=== PATIENT | female | born 1940 | race Caucasian/White ===

== ENCOUNTER 2025-06-23 08:55 | Day surgery (SDC) | payer MEDICARE, SELFPAY ==
[2025-06-13 12:42] VITALS: BMI 28.8
[2025-06-23] VITALS (9 sets, daily range): BP systolic 105–158; BP diastolic 60–84; PULSE 84–109; RESP 16–20; TEMP 36.2–37; O2SAT 92–97; BMI 30.9
--- NOTE | 2025-06-23 07:47 | DI.RAD.S_ITS ---
PROCEDURE: XR KNEE RT 1TO2V
--- NOTE | 2025-06-23 09:32 | P.OP.PRE_ITS ---
Pre-operative Note
--- NOTE | 2025-06-23 09:32 | PM.PREOP ---
Pre-operative Note Interval Note History & Physical reviewed/Exam performed by Physician: Yes Changes to H&P: No
[2025-06-23] MEDS: MELOXICAM 7.5 MG TABLET PO (09:37)
[2025-06-23] MEDS: ACETAMINOPHEN 325 MG TABLET 975 MG PO (09:37)
[2025-06-23] MEDS: LACTATED RINGERS 1,000 ML 42 ML IV ×2 (10:13→11:29)
[2025-06-23] MEDS: TRANEXAMIC ACID 1,000 MG VIAL 1000 MG INJ ×2 (11:05→13:05)
[2025-06-23] MEDS: KETOROLAC 30 MG/ML VIAL 15 MG IV (11:18)
--- NOTE | 2025-06-23 11:24 | SUR.OPER ---
Supine on padded OR bed. Pillow under head, arms secured on padded armboards <90 degree abduction. Safety belt across torso. Non-operative left leg secured with tape over blanket over lower leg. Operative right leg secured in DeMayo/Obdulio/Nathe positioner. Foam padded brace at thigh of operative leg.
--- NOTE | 2025-06-23 13:15 | P.OP_ITS ---
Operative Date/Time/Diagnoses
--- NOTE | 2025-06-23 13:15 | PM.OP.1 ---
Operative Date/Time/Diagnoses Date of procedure: 06/23/25 Time of procedure: 11:45 Pre-op diagnosis: Right knee arthritis Post-op diagnosis: same Procedure & Clinicians Procedure: Right total knee arthroplasty Same procedure(s) as scheduled: Yes Surgeon: Tony Su Assisted?: Yes Punch Out Crew Member: Radha Aguilar Anesthesia Type: Spinal, Sedation, Peripheral nerve block and Local Operative Notes Findings: Severe arthritis with medial laxity Closure Type: primary Applied: implant(s) Estimated Blood Loss (mL): 100 Tourniquet time (min): 90 Procedure in detail: Right total knee arthroplasty using a Idalia CCK implant for severe valgus arthritis with medial sided laxity Implants: Size 9 Femoral Component with 14 x 75 stem Size E Tibial Component with 14 x 75 stem Size 10 CCK Polyethylene Insert Unresurfaced Patella Procedure Summary: This 85-year-old female patient has a family history of Evangelina-Danlos syndrome although she has not personally been diagnosed with it. She also has severe bilateral valgus knee arthritis. Given these factors I recommended a constrained insert for her knee replacement today. As anticipated even after a lateral release she still had significant medial-sided laxity relative to the lateral side. This persisted even when trialing with a CPS insert. A CCK insert was used for the final components in order to restore her medial-sided restraint against valgus stress and after final implants were inserted this was appropriate. Procedure in Detail: This patient was seen preoperatively and evaluated for knee pain which was refractory to numerous nonoperative treatment modalities. Their pain correlated with radiographic changes demonstrating significant degeneration in the knee joint. The risks and benefits of continued nonoperative management versus operative management were discussed at length and all of the patient?s questions were answered. Additional educational materials providing further details beyond our discussion in clinic were provided via a publicly available patient education video which included the incidence of medical complications associated with total knee arthroplasty, reasons for revision following total knee arthroplasty, and patient satisfaction rates following total knee arthroplasty. With this understanding of the risks inherent to the procedure, the patient elected to move forward with operative management. Following preoperative optimization, the patient was scheduled for surgery. The patient was met in the preoperative holding area the day of the procedure and all questions were answered. The patient?s nares were swabbed in order to decolonize them from MRSA. Informed consent was signed and the right limb was marked with indelible ink.? The patient was brought back to the operating room where anesthesia was induced. The patient was transferred to the operating table and all bony prominences were padded. The operative site was prepped and draped in the usual sterile fashion. A second prep stick was utilized following drape placement. The incision was marked corresponding to the medial aspect of the tibial tubercle and the patella. Ioban was wrapped circumferentially around the knee. Prior to incision, tranexamic acid and cefazolin were administered. Templating images were displayed. A timeout procedure was performed verifying the patient?s identity, medical comorbidities, allergies, relevant medications, anesthesia type and the surgical plan. All present were in agreement. The assistance of a physician phlebotomist lab assistant was required for positioning, room setup, soft tissue retraction and wound closure. Without this assistance, the procedure would have been significantly more challenging and time consuming.?? The tourniquet was inflated prior to incision. I made an anterior incision over the knee, dissected through the subcutaneous tissues and identified the lateral border of the VMO. Medial and lateral soft tissue flaps were developed. A mid-vastus arthrotomy was performed ensuring that adequate capsular tissue would remain for closure at the conclusion of the procedure. The knee was brought into extension and the medial soft tissues were released off the joint line of the tibia. Tissue overlying the distal anterior femur was released to allow for later assessment for anterior notching but left in place. A portion of the retropatellar fat pad was excised while protecting the patellar tendon. The patella was everted. The patella was not resurfaced. Osteophytes were excised and a lateral facetectomy was performed. The patella was released from its everted position.?? I flexed the knee to 90 degrees and placed retractors to allow access to the notch. An opening reamer was used to gain access to the femoral canal and an intramedullary lala was introduced into the canal. Diaphyseal fit was obtained in order to plan a distal femoral resection at 5 degrees relative to the anatomic axis. A +0 resection was planned and assessed using an meena wing. I then made the cut using a sagittal saw. This provided additional access to the femoral notch. The ACL and PCL were excised. Retractors were placed on the lateral and medial tibia. I hyperflexed the knee while externally rotating it to sublux the tibia anteriorly. I placed a Linda retractor posteriorly and used this to provide additional anterior subluxation. The remainder of the PCL root was released. An extramedullary guide was positioned for a resection perpendicular to the anatomic and mechanical axes of the tibia, thereby aiming to achieve mechanical alignment of the eventual implant. A +2 resection off the medial tibia after I had removed all of the cartilage which was left in that compartment was planned and the tibial cutting jig was pinned in place. I evaluated the depth, varus-valgus alignment and slope of the planned tibial resection prior to making the cut. I cut the tibia with a sagittal saw while using retractors to protect the MCL, patellar tendon, and posterolateral structures.? The knee was repositioned in extension and the Fuzion soft tissue balancing gauge was introduced. This demonstrated that the medial side was significantly loose relative to the lateral side. As anticipated I therefore move forward with a CCK. I performed a measured resection 3 degree cut of the femur. An meena wing was used to ensure there would be no anterior notching. Retractors were placed to protect the soft tissues during resection. Captured cuts were performed with a sagittal saw for the anterior and posterior femur as well as the corresponding chamfers.?A laminar personal lines insurance advisor and retractors were used to expose the posterior knee and the menisci and posterior osteophytes were removed. The box and stem were prepped. Trial components were placed and the construct was assessed. Range of motion was assessed by ensuring the knee could achieve full extension and assessing maximum passive knee flexion by elevating the femur and allowing the heel to passively fall towards the buttock. Gap symmetry was assessed by stressing the medial and lateral compartments in both extension and flexion. Laxity was assessed in both extension and flexion and the polyethylene trial was adjusted with shims as necessary. Patellar tracking was assessed with knee flexion. Once satisfied with the construct, I moved forward with implant insertion. Lug holes were drilled in the femur and the tibia was prepped ensuring appropriate sizing and rotation relative to the tibial tubercle.?? The bony ends were irrigated and cement was prepared. Portions of the anterior chamfer cut were utilized as a cement restrictor in the femur. Cement was placed on the entirety of the undersurface of both the tibial and femoral components. Cement was placed onto the dry tibia and pressurized into the cancellous bone. I impacted the tibial component into place. Cement was removed. The tibia was reduced underneath the femur and placed cement onto the dry surface of the resected femur. I placed the femoral component as well as the intended polyethylene trial. Cement was removed from around the femur. I brought the knee into extension and manually pressurized the construct by pushing on the heel while the cement dried. The knee was bathed in a dilute mixture of betadine and peroxide. A mixture of Ropivacaine, Epinephrine and Toradol was infiltrated throughout the soft tissues into structures including the VMO, patellar tendon, quadriceps tendon, MCL and femoral periosteum. The knee was copiously irrigated with pulse lavage. Once cement had been allowed to dry the knee was again trialed. Range of motion was assessed by ensuring the knee could achieve full extension and assessing maximum passive knee flexion by elevating the femur and allowing the heel to passively fall towards the buttock. Gap symmetry was assessed by stressing the medial and lateral compartments in both extension and flexion. Laxity was assessed in both extension and flexion and the polyethylene trial was adjusted with shims as necessary. Patellar tracking was assessed with knee flexion. The tourniquet was let down and the polyethylene trial was removed. I inspected the knee inspected for excess cement and any residual bleeding. Once hemostasis was achieved I inserted the final polyethylene and ensured appropriate engagement of the dovetail locking mechanism.?? The arthrotomy was closed with non-absorbable interrupted suture ensuring that this extended to the top of the arthrotomy. This was backed up with running barbed suture throughout the arthrotomy. The skin was closed with 2-0 and 3-0 sutures. Surgical glue was applied and a soft dressing was placed.?The sponge, instrument and needle counts were reported as being correct at the end of the case. The patient was transferred from the operating table back to a stretcher. The patient emerged from anesthesia without difficulty and was taken to the PACU in a stable condition.? Plan for aftercare: Weightbearing as tolerated Aspirin 81 twice per day for DVT prophylaxis Multimodal pain regimen with no IV opioids ordered Anticipate [place] via [place]. She also will need inpatient physical therapy prior to departing.) Follow up at [facility] in 2 weeks for wound check Complications: none Post-operative Condition: stable Disposition: Acute Care
--- NOTE | 2025-06-23 18:32 | PM.PN.IH.1 ---
Subjective Subjective Interval history: I came by to check on Fernandez postoperatively. She is resting comfortably in bed. She is in no acute distress. She has no significant pain currently. We discussed her recovery in detail with her as well as her . She has intact plantar flexion and dorsiflexion of her hallux and ankle and her Owen wrap is in place and is clean dry and intact. We will plan for her to discharge home tomorrow morning via [facility] Exam Vital Signs (past 8 hours): - 06/23/25 13:55 06/23/25 14:02 06/23/25 14:15 Temperature 97.1 F L 97.3 F L 97.4 F L Pulse Rate 89 86 85 Respiratory Rate 20 20 18 Blood Pressure 117/74 119/60 116/77 Pulse Oximetry 93 93 97 Oxygen Delivery Method Room Air Room Air 06/23/25 14:45 06/23/25 17:16 Temperature 97.4 F L 98.5 F Pulse Rate 94 H 109 H Respiratory Rate 16 18 Blood Pressure 105/65 129/71 Pulse Oximetry 94 92 Oxygen Delivery Method Oxygen Delivery Method Room Air Objective Labs Labs: Laboratory Results - last 24 hr 06/23/25 10:07 POC Whole Bld Glucose 101 H PFSH Medical History (Updated 06/13/25 @ 14:42 by Skylar Patterson RN) Primary osteoarthritis of both knees Osteoarthritis Depression Osteoporosis Rubella Measles Herpes Chicken pox AMD (age related macular degeneration) (~2016) Hearing loss Cataracts, bilateral Uterine cancer (~2022) Osteopenia of spine (02/24/17) Osteopenia of other site (02/20/17) Polymyalgia rheumatica (06/17/16) Other polyneuropathy (02/10/16) 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) Obstructive sleep apnea syndrome (12/04/15) Restless legs syndrome (10/12/15) Essential hypertension (10/12/15) Surgical History (Updated 06/13/25 @ 14:42 by Skylar Patterson RN) History of surgery on arm History of nasal surgery Hx of knee surgery Hx of bilateral cataract extraction Anesthesia History of hysterectomy (~2022) Family History (Updated 11/23/24 @ 18:38 by Kristan Delarosa) Brother Stroke MS (multiple sclerosis) Father Hypertension History of heart disease Mother Cancer Social History household members: significant other Smoking Status: Former smoker alcohol intake: current Assessment & Plan Time-Based Coding :: [TOTAL MINUTES] spent with patient and on the chart (including review of chart, obtaining history, exam, reviewing outside data, placing orders, documenting exam and treatment plan, and counseling patient) on [DATE]. Quality VTE Deep Vein Thrombosis/Pulmonary Embolism Present on Admission: No IH PROFEE Manager Personal Document charge(s): No
[2025-06-23] MEDS: LACTATED RINGERS 1,000 ML 100 ML IV (18:47)
[2025-06-23] MEDS: ACETAMINOPHEN 325 MG TABLET 650 MG PO ×2 (18:47→23:55)
[2025-06-23] MEDS: DOCUSATE 100 MG CAPSULE PO (20:22)
[2025-06-23] MEDS: ASPIRIN EC 81 MG TABLET PO (20:22)
[2025-06-24] MEDS: TRANEXAMIC ACID 2,000 MG in SODIUM CHLORIDE 0.9% 100 ML 200 MG IV (05:06)
[2025-06-24] MEDS: ACETAMINOPHEN 325 MG TABLET 650 MG PO (05:13)
--- NOTE | 2025-06-24 05:47 | P.DS_ITS ---
History of Present Illness
--- NOTE | 2025-06-24 05:47 | PM.DS.IH.1 ---
History of Present Illness History of Present Illness Chief complaint: R total knee replacement *OPB* Narrative: 85 year old female with a past medical history of storm danlos syndrome, hypertension and polymyalgia rheumatica presented to [facility] on 06/23/25 for planned right total knee arthroplasty by Dr. Su. ?This elective procedure was indicated by chronic right knee arthritis causing night time pain and difficulty maintain her normal activities. ?On the date of surgery there were no changes of the medical history, medications or allergies. ?Consent had been obtained and the patient was in agreement to proceed with planned surgery. This morning the patient reports she is doing very well with mild pain after surgery. Pain has been controlled with oral medications including tylenol and oxycodone on one occasion last night. The patient has not worked with physical therapy yet but has been up and walking with the assist of her walker. She noticed difficulty with ankle dorsiflexion and has been dragging the right foot when ambulating. The patient denies chest pain, dyspnea, nausea, emesis, fever and chills. Patient she has some numbness in the right lower extremity. She is making urine spontaneously. The patient has all of their post operative medications at home and feels ready to discharge home today with care of her . Discharge Providers Provider Discharge Date: 06/24/25 Primary care physician: Nixon Laurent PA-C Consults: 06/23/25 07:46 Consult to Anesthesiology Routine Comment: Consulting Provider: Anesthesiologist Reason for consultation: Regional block for post-operative pain control 06/23/25 17:16 Consult to Discharge Planning Routine Comment: Consult to Occupational Therapy Evaluate & Treat Comment: Physician Instructions: Evaluate and treat Consult to Physical Therapy Evaluate & Treat Comment: Physician Instructions: Evaluate and Treat Discharge provider: LEA Iqbal Dr Summary Hospital Course Hospital Course: On 06/23/25 the patient was brought to the operating room for planned right total knee arthroplasty by Dr Su.? There were no known intraoperative complications.? The patient was transferred to the postoperative recovery area and monitored appropriately.? Later the patient was transferred to the acute care unit [facility] for monitoring overnight and physical therapy.? There were no acute events overnight.?On post operative day 0 she was noted to have difficulty with ankle dorsiflexion. On postoperative day 1, the patient's vital signs were stable and she was making urine spontaneously.? The patient denied chest pain, dyspnea, nausea and emesis on postoperative day 1.? The patient was awaiting physical therapy evaluation during orthopedic rounds.? Pain was well-controlled on oral analgesics and the patient was in agreement with preoperative plan to [place] on postoperative day 1. Given difficulty with ankle dorsiflexion the patient was seen by Dr Su on post operative day 1 as well as myself. Dr Su provided a written prescription for an AFO given to be obtained locally. Exam Vital Signs (past 8 hours): - 06/23/25 23:56 Pulse Rate 84 Respiratory Rate 16 Blood Pressure 134/84 Pulse Oximetry 95 Oxygen Delivery Method Room Air Narrative Exam Narrative: well developed, well nourished, 85 year old female, no acute distress Active dorsiflexion of right ankle is not intact. Passive dorsiflexion is appropriate however she cannot initiate any active dorsiflexion. Plantar flexion and EHL function intact. Ankle eversion is weak with 3/5 strength. Ankle inversion 4/5. Gross sensation to right foot intact, palpable dorsalis pedis pulse calves are soft and non tender dressing dry and intact to right knee without hematoma. 0.25 cm spot of sanguinous drainage on dressing Objective Labs 06/24/25 04:50 06/24/25 04:50 Labs: Laboratory Results - last 24 hr 06/23/25 10:07 POC Whole Bld Glucose 101 H PFS Medical History (Updated 06/13/25 @ 14:42 by Skylar Patterson RN) Primary osteoarthritis of both knees Osteoarthritis Depression Osteoporosis Rubella Measles Herpes Chicken pox AMD (age related macular degeneration) (~2016) Hearing loss Cataracts, bilateral Uterine cancer (~2022) Osteopenia of spine (02/24/17) Osteopenia of other site (02/20/17) Polymyalgia rheumatica (06/17/16) Other polyneuropathy (02/10/16) 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) Obstructive sleep apnea syndrome (12/04/15) Restless legs syndrome (10/12/15) Essential hypertension (10/12/15) Surgical History (Updated 06/13/25 @ 14:42 by Skylar Patterson RN) History of surgery on arm History of nasal surgery Hx of knee surgery Hx of bilateral cataract extraction Anesthesia History of hysterectomy (~2022) Family History (Updated 11/23/24 @ 18:38 by Kristan Delarosa) Brother Stroke MS (multiple sclerosis) Father Hypertension History of heart disease Mother Cancer Social History household members: significant other Smoking Status: Former smoker alcohol intake: current Discharge Assessment & Plan Assessment and Plan Plan of Treatment: 85 year old female with a past medical history of storm danlos syndrome, hypertension and polymyalgia rheumatica presented to [facility] on 06/23/25 for planned right total knee arthroplasty by Dr. Su. The patient is recovering well with appropriate pain control on oral analgesics and stable vital signs. The patient is comfortable with planned discharge home today on post operative day one after physical therapy. Dr Su was contacted about the foot drop. He has prescribed an AFO to be obtained at a local prosthetics office. [facility]. Plan:? Weightbearing as tolerated to right lower extremity with front wheeled walker? ? DVT prophylaxis with 81 mg of aspirin twice daily for 6 weeks Continue multimodal analgesia with Tylenol, meloxicam and oxycodone? Bowel regimen as needed? Physical therapy evaluation and treatment today? Follow up with orthopedics 2 weeks post operatively? All post operative medications ordered at pre operative visit? Ice to surgical site as needed? All patient questions were answered and they verbalized agreement with the above plan. Call [facility] with any questions or concerns. Discharge Plan Discharge Plan Patient Disposition: Home Provider Discharge Comment: SURGICAL PROCEDURE: Right Total Knee Arthroplasty SURGEON: Dr. Su at [facility] DATE: 06/23/25 ACTIVITY INSTRUCTIONS o You are weight bearing as tolerated to the right lower extremity with a front wheeled walker at all times. We encourage active movement of the toes and ankle every hour while awake to prevent stiffness. o Limit your steps to no more than 1000 steps per day for the first week after surgery to limit swelling. o Do not drive while taking narcotic medications and recovering from your surgery. o If you had a knee replacement, we want you to follow a quiet knee protocol for the first two weeks after surgery. This means: Do not stand for more than 20 minutes at a time Ambulate less than 1,000 steps per day Bend the knee as far as you can with your own muscles and straighten it all the way out by resting your heel on a flat surface and letting your knee hang down Avoid anyone pushing your knee to bend it or straighten it After two weeks we will want you to get more aggressive in your work with physical therapy, but we need to let your body heal first DRESSING CARE o You have an aquacell dressing on top of your incision. This is a waterproof dressing and so you may shower with the dressing so long as the dressing remains clean and dry to the surgical site. Leave the dressing in place until your follow up in the orthopedic clinic. If the dressing becomes saturated or is disrupted call our office for further guidance. o Your dressing is covered with a soft cotton dressing and hope wrap for compression. You may remove these dressings when you return home but should leave the waterproof dressing in place. POST-OPERATIVE INSTRUCTIONS o If you notice fever, chills, night sweats, redness, excessive drainage or bleeding, a sharp increase in pain that persists after taking pain medication, pain in your calf muscles, chest pain or trouble breathing please unwrap the dressing and investigate. Then call the office with findings for further guidance. If it is after regular clinic hours, please seek care in the emergency department. o In the rare case of any severe chest pain and trouble breathing, seek immediate care, do not delay for a call to the clinic. o Use ice to the affected extremity for 15-30 minutes increments as much as possible. Use your ice machine as discussed in your pre-operative visit. o Keep extremity elevated to the level of the heart to reduce swelling. You can use ice on top of the dressing to reduce pain and swelling of the extremity. o You should consume a low sodium diet after surgery to limit swelling. You can gradually resume your normal diet if you have no nausea or vomiting o Physical therapy should begin about 7-10 days after surgery. Your first evaluation should already be scheduled. Call our office if you cannot schedule your therapy in the expected time frame. o Your follow up is already scheduled for 2 weeks after your surgery at the Orthopedic clinic. o You should have no dental procedures for 6 months following your total joint replacement. If there is a dental emergency call our office for guidance. o Please refer to Dr. Su?s educational videos on YouTube for a reference on your post operative care. o Call [facility] at [phone] with any questions or concerns. MEDICATIONS o Please refer to the ?Orthopedic Medication Instructions? sheet provided at your pre-operative visit. Written instructions are provided below as a reminder. ? Take two pills of 500 mg Tylenol (acetaminophen) every 8 hours regardless of pain in a scheduled manner. Do not exceed 3000 mg of Tylenol (from ALL sources, including over the counter combination products) in a 24-hour period due to risk of liver injury. ? Take one pill of oral meloxicam daily. This is NSAID (anti-inflammatory) medication to reduce swelling and pain. ? Take one pill of 5 mg oxycodone by mouth every 4-6 hours as needed for break through pain after taking your regular Tylenol and anti-inflammatory. ? Oxycodone and Tramadol are opioids, which means they are similar to morphine, heroin or fentanyl. Our goal is for you to take as little of this as possible because the side effects from it can be very severe. If you are able to get through your recovery process taking 10 pills or less please share your story with other patients by logging onto [email or web address] and sharing what strategies you used to avoid these dangerous medications. You can also read other patients? stories on that website to get strategies that go above and beyond what we have discussed to help you manage this pain while avoiding opioids. ? Take 200 mg of Colace by mouth every 12 hours for constipation. Narcotic medications such as oxycodone and tramadol as well as anesthesia may increase your risk of constipation after surgery. ? Take 4 mg of Zofran by mouth every 6 hours as needed for uncontrolled nausea or vomiting. If you have persistent nausea and vomiting call our office or seek care in the emergency department. ? Take one pill of 81 mg of aspirin two times daily 12 hours apart for 6 weeks for blood clot prevention. Take this medication regardless of pain. ? Take three pills of 650 mg tranexamic acid once daily for 3 days following surgery. This is to reduce bleeding and swelling in your knee. ? Take a proton pump inhibitor such as Pantoprazole or Omeprazole if you have a history of acid reflux or are noticing stomach irritation. NSAIDs and aspirin can both cause stomach irritation and that medication can help avoid stomach issues. o If you stopped taking a ?biologic? medication that you normally take for an issue such as rheumatoid arthritis or psoriasis prior to surgery, do not restart it until we have seen you back in clinic and confirmed that your wound is healed. o Resume all of your normal home medications tomorrow morning unless specified otherwise by your surgeon. Discharge orders & Medications Discharge Orders: Discharge (Order); Ordered 06/24/25 Ordered By: Tony Su Prescriptions: New acetaminophen 500 mg capsule 1,000 mg PO Q8HR Qty: 90 0RF tranexamic acid 650 mg tablet 1,950 mg PO .QD 3 Days Qty: 9 0RF aspirin 81 mg capsule 81 mg PO BID 45 Days Qty: 90 0RF Continued bupropion HCl [Wellbutrin XL] 300 MG tablet extended release 24 hr 300 mg PO Q DAY Qty: 90 1RF acyclovir 400 MG tablet 400 mg PO Q DAY Qty: 90 0RF PreserVision AREDS 2 Plus MV 200 mcg-15 mcg- 5 mg-1 mg capsule PO estradiol 0.01 % (0.1 mg/gram) cream 1 appful vaginal DAILY Qty: 42.5 6RF Rx Instructions: Place small amount in vagina using a finger for 2 wks and then 0.5gm twice a week vilazodone 40 mg tablet 40 mg PO DAILY ondansetron 4 mg tablet,disintegrating 4 mg PO Q8H PRN (Reason: nausea and vomiting) Qty: 7 0RF meloxicam 15 mg tablet 15 mg PO DAILY PRN (Reason: pain) Qty: 30 1RF docusate sodium [Colace] 100 mg capsule 100 mg PO BID PRN (Reason: constipation) Qty: 60 0RF pantoprazole 40 mg tablet,delayed release (DR/EC) 40 mg PO DAILY Qty: 30 0RF oxycodone 5 mg tablet 5 mg PO Q6H PRN (Reason: pain) Qty: 30 0RF Follow up/Referrals: Nixon Laurent PA-C [Primary Care Provider, Medical] Visit Report/Discharge Packet Stand Alone Forms: Patient Portal/API Print Language: Lao Discharge Data Primary Care Provider: Nixon Laurent Attending Provider: Tony Su VTE Deep Vein Thrombosis/Pulmonary Embolism Present on Admission: No IH PROFEE Charge Codes Discharge inpatient/observation: 26232
[2025-06-24 05:53] LABS: Add Manual Diff / Slide Review NO; Hematocrit 33.4 % (36-46); Hemoglobin 11.4 g/dL (12.0-16.0); Lymphocytes Absolute Auto 1000 /uL (1100-4500); Mean Corpuscular HGB Conc 34.2 % (30-36); Mean Corpuscular Hemoglobin 33.9 PG (26-34); Mean Corpuscular Volume 98.9 fL (80-100); Platelet Count 251 X10^3/uL (150-400)
[2025-06-24 06:01] LABS: Blood Urea Nitrogen 17 mg/dL (7-17); Calcium 9.1 mg/dL (8.4-10.2); Carbon Dioxide 26 mmol/L (22-32); Chloride 105 mmol/L (98-107); Estimated Glomerular Filt Rate > 60 mL/min (>60); Glucose 125 mg/dL (70-99); HEMOLYSIS < 15 (0-50); Potassium 3.8 mmol/L (3.4-5.1); Sodium 138 mmol/L (137-145)
[2025-06-24] MEDS: ASPIRIN EC 81 MG TABLET PO (08:10)
[2025-06-24] MEDS: IBUPROFEN 600 MG TABLET PO (08:12)
--- NOTE | 2025-06-24 08:38 | PM.PNPO.1 ---
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 She has no ankle dorsiflexion and limited eversion but intact hallux and lesser toe dorsiflexion and intact sensation on the dorsum of her foot. This is a known common complication of total knees in patients with severe valgus deformities like hers. Given the intact nerve function in her peroneal nerve with her toes and sensory function I anticipate that this is going to resolve over time but fall avoidance will be crucial. I provided a prescription for an AFO this morning for a local prosthetics shop. I would like her to discharge in time to go there and be fitted for the AFO prior to getting on [place] ferry and returning home. She will need to work with PT beforehand and reports that she has already walked around her hospital room yesterday evening although she did not get a formal PT session. Training on how to use ambulatory aids to avoid falls will be essential for her and will continue with outpatient PT. Exam Vital Signs (past 8 hours): Oxygen Delivery Method Room Air Objective Labs 06/24/25 04:50 06/24/25 04:50 Labs: Laboratory Results - last 24 hr 06/23/25 06/24/25 10:07 04:50 WBC 10.7 RBC 3.38 L Hgb 11.4 L Hct 33.4 L MCV 98.9 MCH 33.9 MCHC 34.2 RDW 14.2 Plt Count 251 Neut % (Auto) 80.4 H Lymph % (Auto) 8.9 L [place] % (Auto) 10.5 Eos % (Auto) 0.0 L Baso % (Auto) 0.2 Neut # (Auto) 8600 H Lymph # (Auto) 1000 L [place] # (Auto) 1100 H Eos # (Auto) 0 Baso # (Auto) 0 Sodium 138 Potassium 3.8 Chloride 105 Carbon Dioxide 26 BUN 17 Creatinine 0.64 Estimated GFR > 60 BUN/Creatinine Ratio 26.6 H Glucose 125 H POC Whole Bld Glucose 101 H Calcium 9.1 PFSH Medical History (Updated 06/13/25 @ 14:42 by Skylar Patterson RN) Primary osteoarthritis of both knees Osteoarthritis Depression Osteoporosis Rubella Measles Herpes Chicken pox AMD (age related macular degeneration) (~2016) Hearing loss Cataracts, bilateral Uterine cancer (~2022) Osteopenia of spine (02/24/17) Osteopenia of other site (02/20/17) Polymyalgia rheumatica (06/17/16) Other polyneuropathy (02/10/16) 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) Obstructive sleep apnea syndrome (12/04/15) Restless legs syndrome (10/12/15) Essential hypertension (10/12/15) Surgical History (Updated 06/13/25 @ 14:42 by Skylar Patterson RN) History of surgery on arm History of nasal surgery Hx of knee surgery Hx of bilateral cataract extraction Anesthesia History of hysterectomy (~2022) Family History (Updated 11/23/24 @ 18:38 by Kristan Delarosa) Brother Stroke MS (multiple sclerosis) Father Hypertension History of heart disease Mother Cancer Social History household members: significant other Smoking Status: Former smoker alcohol intake: current Assessment & Plan Post-op Postoperative Procedures: Procedures Operation Date: 06/23/25 11:15 Actual Procedure Side Surgeon p Total Knee Arthroplasty Right Tony Su MD Quality VTE Deep Vein Thrombosis/Pulmonary Embolism Present on Admission: No
--- NOTE | 2025-06-24 10:00 | PT.IIE ---
Current Diagnoses Unilateral primary osteoarthritis, right knee (06/23/25) Surgery Performed Operation Date: 06/23/25 11:15 Actual Procedures p Total Knee Arthroplasty(Right) - Tony Su MD Surgical History (Last Updated 06/13/25 @ 14:42 by Skylar Patterson, RN) Anesthesia History of hysterectomy (~2022) History of nasal surgery History of surgery on arm Hx of bilateral cataract extraction Hx of knee surgery Medical History (Last Updated 06/13/25 @ 14:42 by Skylar Patterson, RN) AMD (age related macular degeneration) (~2016) Cataracts, bilateral Chicken pox Depression Essential hypertension (10/12/15) Hearing loss Herpes Measles Obstructive sleep apnea syndrome (12/04/15) Osteoarthritis Osteopenia of other site (02/20/17) Osteopenia of spine (02/24/17) Osteoporosis Other polyneuropathy (02/10/16) Polymyalgia rheumatica (06/17/16) 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) Primary osteoarthritis of both knees Restless legs syndrome (10/12/15) Rubella Uterine cancer (~2022) Physical Therapy Inpatient Evaluation/Re-Eval M1 PT IP Prior Functional Status Start: 06/24/25 12:55 Freq: NEEDED Status: Discharge Protocol: Document 06/24/25 10:00 AB (Rec: 06/24/25 14:03 AB [id number]) Medical Review Prior Functional Status Medical History Yes Reviewed Communication able to make needs known; tends to refer to significant other for answers Mobility and Gait pt stated that she was modified independent with all mobilities and ambulation without AD but occasionally uses a walking stick or a SPC for outdoor long distance ambulation Social History Household Members significant other Living Arrangements House Number of Floors ( One Floor Floors) Number of Stairs To ramp to enter Enter/Railing? Home Environment Standard Height Toilet,Walk in Shower Home Equipment Front Wheel Walker,Straight Cane,Bedside Commode,Raised Toilet Seat w/Armrests,Shower Seat without Backrest, Hand Held Shower,Long Handled Shoe Horn,Utilization Management Manager,Sock Aid,Grab Bars In Shower Additional Social Pt has a very supportive partner to assist. History Comment M2 PT-IP Current Condition Start: 06/24/25 12:55 Freq: NEEDED Status: Discharge Protocol: Document 06/24/25 10:00 AB (Rec: 06/24/25 14:03 [id number]) Physical Therapy Current Condition Current Condition Evaluation Date 06/24/25 Treatment Diagnosis s/p R TKA; difficulty in walking Onset Date 06/23/25 M3 PT-IP Subjective Start: 06/24/25 12:55 Freq: NEEDED Status: Discharge Protocol: Document 06/24/25 10:00 AB (Rec: 06/24/25 14:03 [id number]) Subjective Physical Therapy Visit Type Type Initial Evaluation Visit Start Time 10:00 Visit Stop Time 10:50 Number of CARPENTRY INSTRUCTOR Visits 0 Physical Therapy Visit Comments Patient Comments agreeable to do PT Therapy Pain Assessment Pain When Pain Assessed At Rest Pain Present Pain Present Pain Reported Location Right Knee Intensity 2 Scale Used Numeric (0 - 10) Pain Management Distraction,Modification of Treatment,Re-positioning, Techniques Timing of Activity with Medications M4 PT-IP Mobility and Gait Start: 06/24/25 12:55 Freq: NEEDED Status: Discharge Protocol: Document 06/24/25 10:00 AB (Rec: 06/24/25 14:03 [id number]) PT-Bed Mobility Assessment Supine to Sit Supine to Sit Standby Assistance PT-Transfer Assessment Sit to and From Stand Sit to and from Minimal Assistance,1 Person Assistance,Use of Upper Stand Extremities Equipment Transfer Assistive Gait Belt,Front Wheeled Walker Device Orthotic/Prosthetic No Devices or Brace: Transfers Transfer Destination Chair Transfer Technique ambulated Transfer Ability Level of Assist Contact Guard Assistance,Minimal Assistance,1 Person Assistance,Use of Upper Extremities Comments Mobility Comments pt in bed and pt's significant other in room with pt. obtained PLOF and home set up. post-op folder provided and reviewed contents. reviewed HEP. pt completed heel slides prior to getting up. BP: 125/78. completed supine to sit SBA. pt can be impulsive. cued for safety. able to sit on EOB SBA. sit to stand min A and cues. pt ambulated in room using FWW ~ 20 ft initial min A and able to complete with CGA after a few feet of walking and cues for R quads activation. pt sat on the chair. caregiver training conducted. educated caregiver on how to use safety. caregiver was able to put safety belt on pt and assisted pt with sit to stand and ambulation in room using FWW ~ 30 ft CGA. pt sat back on chair and positioned. call light and table placed within reach. pt and significant other without further concerns. Gait Assessment Gait Gait Assistance Contact Guard Assist,Minimum Assistance Required: Distance (Feet) 30 Able to Maintain Yes Weight Bearing Status During Gait Assistive Devices Assistive Device Gait Belt,Front Wheeled Walker Orthotic/Prosthetic No Devices or Brace: Gait Deviations General Gait Pattern Antalgic,Ataxic,Decreased Feet Clearance,Step-to Gait Factors Limiting Gait Function Factors Limiting Decreased Activity Tolerance,Decreased Strength, Gait Function Difficulty Following Directions,Limited Range of Motion ,Pain,Poor Balance,Poor Safety Awareness PT-Balance Assessment Sitting Balance and Reactions Static Sitting Normal Balance Ability Dynamic Sitting Good Balance Ability Standing Balance and Reactions Static Standing Good Balance Ability Dynamic Standing Fair Balance Ability Device Used FWW M5 PT-IP Objective Assessments Start: 06/24/25 12:55 Freq: NEEDED Status: Discharge Protocol: Document 06/24/25 10:00 AB (Rec: 06/24/25 14:03 [id number]) Orientation Orientation/Cognition Level of Alertness Alert Orientation Age,Place,Situation Language Function No Deficits Noted Ability Safety Awareness Decreased Safety Awareness Memory Description Short Term Impaired Gross Range of Motion Lower Extremity ROM Assessment Right Impaired Impairments R knee flexion: ~ 20-30 deg Strength Lower Extremity Strength Assessment Right Impaired Hip 4-/5 Knee 4-/5 Ankle 1/5: pt with R foot drop M6 PT-IP Treatment Start: 06/24/25 12:55 Freq: NEEDED Status: Discharge Protocol: Document 06/24/25 10:00 AB (Rec: 06/24/25 14:03 [id number]) Physical Therapy Treatment Education Education Provided Precautions,Weight Bearing Status,Post-Op Packet,Safety M7 PT-IP Assessment and Plan Start: 06/24/25 12:55 Freq: NEEDED Status: Discharge Protocol: Document 06/24/25 10:00 AB (Rec: 06/24/25 14:03 AB [id number]) PT Summary Assessment and Plan Potential Rehabilitation Fair Potential Status of Condition Evolving at Evaluation Summary Impairments Pain,ROM,Strength,Balance,Coordination,Sensation,Tone, Cognition,Bed Mobility,Transfers,Gait,Activity Tolerance Assessment Summary pt is an 85 y/o F s/p R TKA POD 1. pt is WBAT on RLE. pt requiring CGA to min A with mobilities using FWW and plans to go home with her significant other to assist her. Caregiver training conducted and significant other was able to assist pt with mobilities. pt may go home when medically stable. Goals Bed Mobility Goal Independent Transfer Goal Independent,Front Wheeled Walker Gait Goal Independent,Front Wheel Walker Gait Distance 150 Days to Meet Goals 5 Frequency of Treatment Frequency Of Twice a Day Treatment Treatment Plan Physical Therapy Bed Mobility Training,Transfer Training,Gait Training, Treatment Plan Therapeutic Exercise,Balance Retraining,Post Op Education,Discharge Planning,Hot or Cold Pack, Neuromuscular Re-ed,Coordination Retraining,Manual Therapy Weight Bearing Status Weight Bearing Weight Bear as Tolerated Status Allowed Weight RLE WBAT Bearing Amount ( enter % or #) (%) Recommendations To Nursing Amount of Assist 1 Person Assist Needed Discharge Recommendations PT Discharge Home with 13/03 Assist Available,Outpatient PT Recommendations Transportation Needs Private Vehicle at Discharge - PT assist 1
--- NOTE | 2025-06-24 11:28 | OT.IP.EVAL ---
Current Diagnoses Unilateral primary osteoarthritis, right knee (06/23/25) Surgery Performed Operation Date: 06/23/25 11:15 Actual Procedures p Total Knee Arthroplasty(Right) - Tony Su MD Past Medical History (Last Updated 06/13/25 @ 14:42 by Skylar Patterson, RN) AMD (age related macular degeneration) (~2016) Cataracts, bilateral Chicken pox Depression Essential hypertension (10/12/15) Hearing loss Herpes Measles Obstructive sleep apnea syndrome (12/04/15) Osteoarthritis Osteopenia of other site (02/20/17) Osteopenia of spine (02/24/17) Osteoporosis Other polyneuropathy (02/10/16) Polymyalgia rheumatica (06/17/16) 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) Primary osteoarthritis of both knees Restless legs syndrome (10/12/15) Rubella Uterine cancer (~2022) Surgical History (Last Updated 06/13/25 @ 14:42 by Skylar Patterson, RN) Anesthesia History of hysterectomy (~2022) History of nasal surgery History of surgery on arm Hx of bilateral cataract extraction Hx of knee surgery Occupational Therapy Inpatient Evaluation/Re-Eval M1 OT IP Prior Functional Status Start: 06/24/25 11:21 Freq: Status: Active Protocol: Document 06/24/25 11:21 [facility] (Rec: 06/24/25 11:39 [facility] Desktop) Medical Review Prior Functional Status Communication I Mobility and Gait Pt needing to use the cane or walking stick. Activities of Daily Able to do ADL needs. Living and IADL's Social History Household Members significant other Living Arrangements House Number of Floors ( One Floor Floors) Number of Stairs To Pt has a ramp. Enter/Railing? Home Environment Standard Height Toilet,Walk in Shower,Tub/Shower Home Equipment Front Wheel Walker,Straight Cane,Bedside Commode,Raised Toilet Seat w/Armrests,Hand Held Shower,Long Handled Shoe Horn,Semi Driver,Sock Aid Additional Social Pt has a very supportive partner to assist. History Comment M2 OT-IP Current Condition Start: 06/24/25 11:21 Freq: Status: Active Protocol: Document 06/24/25 11:21 [facility] (Rec: 06/24/25 11:39 [facility] Desktop) Occupational Therapy Current Condition Current Condition Evaluation Date 11/04/25 Treatment Diagnosis S/P R TKA Weight Bearing Status Weight Bearing Weight Bear as Tolerated Status M3 OT- IP Subjective and Pain Start: 06/24/25 11:21 Freq: Status: Active Protocol: Document 06/24/25 11:21 [facility] (Rec: 06/24/25 11:39 [facility] Desktop) OT- Subjective Occupational Therapy Visit Type Type Initial Evaluation Visit Start Time 10:50 Visit Stop Time 11:28 Occupational Therapy Visit Comments Patient Comments Pt agreed to get dressed and pt's partner present for OT eval. Patient/Caregiver TO go home. Goals OT Pain Assessment Pain When Pain Assessed At Rest Pain Present Pain Present Pain Reported Location Right Knee Intensity 3 Scale Used Numeric (0 - 10) M4 OT- IP ADL's Start: 06/24/25 11:21 Freq: Status: Active Protocol: Document 06/24/25 11:21 [facility] (Rec: 06/24/25 11:39 [facility] Desktop) OT [facility] General Evaluation Self-Feeding Ability Independent OT ADL-Grooming Comments OT Grooming Comments Pt to do later after doing discharge paper work with nursing. OT ADL-Dressing General Eval Upper Body Dressing Minimal Assistance Ability Lower Body Dressing Moderate Assistance,Maximum Assistance Ability Areas Needing Socks,Shoes Assistance Comments OT Dressing Comments Able to practice use of parts person and sock aid. Educated to dress the RLE first and take out past. OT ADL-Toileting Comments OT Toileting Pt wears incontinence brief and also has BSC. Comments OT ADL-Bathing Comments OT Bathing Comments Pt's partner aware best to cover the dressing for showering needs. M5 OT- IP IADL's Start: 06/24/25 11:21 Freq: Status: Active Protocol: Document 06/24/25 11:21 [facility] (Rec: 06/24/25 11:39 [facility] Desktop) OT-Instrumental Activities of Daily Living Home Safety Awareness Home Safety Comments Pt is a little distracted and confused. Medication Management Medication Pt's partner to assist. Management Comments Meal Preparation Meal Preparation Caregiver Provides Assist Case Managers Case Managers Caregiver Provides Assist M6 OT- IP Functional Cognition Start: 06/24/25 11:21 Freq: Status: Active Protocol: Document 06/24/25 11:21 [facility] (Rec: 06/24/25 11:39 [facility] Desktop) Cognitive Factors Limiting Selfcare Function Cognitive Ability Level of Alertness Alert,Confusional State Patient Orientation Name,Place,Situation Attention Span Capable of Focused Attention,Unable to Sustain Ability Attention Ability to Follow Able to Follow One Step Commands with Increased Time, Commands Able to Follow One Step Commands with Repetition Safety Awareness Underestimates Need for Assistance Cognitive Comments Cognitive Assessment Pt decreased STM, easily distracted, needing cues to Comments slow down, and vc to focus on one thing at a time. OT- Vision and Hearing OT- Vision Assessment Visual Acuity Glasses All The Time Visual Attentiveness WFL Occular Pursuits WFL M7 OT- IP Mobility and Balance Start: 06/24/25 11:21 Freq: Status: Active Protocol: Document 06/24/25 11:21 [facility] (Rec: 06/24/25 11:39 [facility] Desktop) OT-Transfer Assessment Sit to and From Stand Sit to and from Contact Guard Assistance Stand Comments Mobility Comments CGA to come to stand to the FWW. OT- Balance Assessment Sitting Balance and Reactions Static Sitting Normal Balance Ability Dynamic Sitting Good Balance Ability Standing Balance and Reactions Static Standing Fair Balance Ability M8 OT- IP Objective Assessments Start: 06/24/25 11:21 Freq: Status: Active Protocol: Document 06/24/25 11:21 [facility] (Rec: 06/24/25 11:39 [facility] Desktop) OT Gross Range of Motion Upper Extremity Range of Motion ROM Impairments WFL for needs OT Strength Comments Strength Comments WFK for needs. M9 OT- IP Assessment and Plan Start: 06/24/25 11:21 Freq: Status: Active Protocol: Document 06/24/25 11:21 [facility] (Rec: 06/24/25 11:39 [facility] Desktop) OT Summary Assessment and Plan Potential Rehabilitation Excellent Potential Analytic Complexity Low at Evaluation Summary OT Impairments Pain,Balance,Functional Cognition,Functional Mobility, Dressing,Toileting,Bathing,Toilet Transfers,Shower Transfers Progress Towards Progressing Toward Goals Goals Assessment Summary Pt low complexity and main barriers are pain, easily distracted and decreased safety awareness. Pt's has a very supportive partner that is capable of assist pt for ADL and mobility needs. Pt to go home with 24/7 assist and outpt PT. Goals Self-Feeding Goal Independent Grooming Goal Independent Dressing Goal Standby Assistance Toileting Goal Standby Assistance Bathing Goal Minimal Assistance Toilet Transfer Goal Standby Assistance Shower Transfer Goal Standby Assistance Days to Meet Goals 7 Frequency of Treatment Other frequency 5x/week Treatment Plan OT Treatment Plan ADL Training,Functional Cognition Training,Patient/ Family Education,Discharge Planning Discharge Recommendations OT Discharge Home with 13/03 Assist Available,Outpatient PT Recommendations Transportation Needs Private Vehicle at Discharge
--- NOTE | 2025-06-24 13:26 | PC.NURSE ---
Discharge Note Patient A&O, VSS, RA, no complaints of pain/discomfort. Discharge packet reviewed with patient all questions/concerns addressed. PIV discontinued. Patient able to dress self and pack all belongings with assistance from significant other. Patient taken down via wheelchair to POV accompanied by significant other.
--- NOTE | 2025-06-24 14:19 | CM.DANOTE ---
DCP Assessment note pt is a 85yo F POD1 right total knee. GARNISHER reviewed EMR. per chart, cleared to dc home today. Per PT/OT, cleared for home with assistance and OP f/u. Per RN, doing well, needs to get a brace from ortho fitted for drop foot? GARNISHER met with pt and Ekaterina in room. pt lives with spouse indep on [address]. has necessary DME for home. report plan for getting brace and then take ferry home to [place]. report understanding there may or may not be insurance issues with having INPT and OP care same day and will plan to follow up on backend once final bills are known. deny any DCP/CM needs from provider at this time. P: dc home today with spouse support and OP F/u. no identified barriers to safe dc home. will continue to follow as needed for DCP coordination GIRISH Huizar Discharge Planning/Care Management CM Discharge Assessment Start: 06/23/25 14:33 Freq: Status: Discharge Protocol: Document 06/24/25 14:14 SL (Rec: 06/24/25 14:18 SL [id number]) Discharge Planning Assessment Assigned Discharge GIRISH Horner Nurse Informaticist Provider Nixon Laurent Insurance [employer] Insurance Comment [employer] MCR Adv plan DPOA/Assigned Ekaterina, Designee Name Contact Information [phone] Advance Directives? Yes Advance Directives No on File History Provided By Patient,Medical Record Prior Living House Arrangements Household Members significant other Independent with ADL Yes 's Is patient alert and Yes oriented? Discharge Plan Home Referrals Initiated None needed Review Status In Process Please Provide Date 06/24/25 Initial DC Assessment Was Performed Next Review Type Continued Stay Review Pre-Anesthesia Assessment Start: 06/13/25 12:42 Freq: Status: Complete Protocol: Document 06/13/25 12:42 LB (Rec: 06/13/25 13:21 LB [id number]) Pre-Anesthesia Assessment Information obtained Phone via Preferred Name Jim Height 160.02 cm Weight 73.936 kg Body Mass Index (BMI 28.8 ) Has patient seen a Yes specialist in last 12 months? If yes, specialist ENT,Orthopedist seen Patient experienced Shortness of breath in the last year Patient experienced Yes syncope or dizziness in the last year? If yes, please Dizziness d/t being off balance. describe Does patient have None history of Has patient ever had No a blood clot? Is patient on No anticoagulant therapy? Does patient have a Yes chiropractic assistant? If yes, chiropractic assistant Dr Cardoza - [place]. name Was cardiac testing Yes performed? If yes, type 2024 - Echo, [place]. Does patient have No history of a pacermaker/ICD? Can patient climb a Yes: I go very slowly. flight of stairs without shortness of breath? Can patient walk Yes around the grocery store without shortness of breath? Does patient have None history of Does patient use No oxygen at home? Does patient have Yes history of Sleep Apnea? Patient uses CPAP/ No BiPAP? Cough or cold No symptoms in the past two weeks? Does patient have Yes any memory problems? If yes, please trouble remembering how to pronounce certain words describe Does patient have None history of Mobility device(s) Cane,Other used Comment Walking sticks. Will bring walker. Has patient fallen Yes within the past year ? Does patient have a No neurostimulator or pain stimulator? Does patient have No chronic pain? Does patient have Yes history of GERD? Special dietary Yes needs or difficulty swallowing? If yes, please I choke often when eating or drinking. describe Does patient have No history of kidney/ liver problems/ disease? Does patient have No Diabetes? HgbA1C 5.4 Date 04/15/25 GLP-1? No Does patient have No history of thyroid problems? Is patient ? No Is patient No ? Does patient have Yes history of cancer? If yes, what type? Endometrial - s/p hysterectomy. If yes, received Yes radiation? Alcohol intake holidays/special occasions only Smoking status Former smoker Marijuana product No use? Type +CBD. Comment Quit in her 30's. Other substance use None Does patient have No history of anesthesia reactions ? Family history of No anesthesia reactions ? Patient/family No member history of Malignant Hyperthermia? Does patient have I'm not sure. history of a blood transfusion reaction ? Anesthesia Review No Requested Spiritual beliefs No. that may affect healthcare choices? Cultural practices No. that may affect healthcare choices? Patient has Advanced Yes Directive and/or Power of Java J2Ee Architect? Does patient have Yes assistance after surgery? Comment Ekaterina Yostan - partner Who is driving Ekaterina Yostan - partner patient home after surgery? Relationship to Significant Other patient PAC Instructions Assistance for 24 hours post-op,Do not shave/clip surgical site,Medications to take/avoid,No ETOH/ petroleum product on skin DOS,NPO,Post-op transportation,Pre-surgical wash,Sensory aids,Sturdy shoes/comfortable clothes,Do not bring valuables and remove jewelry
== END 2025-06-24 12:45 | disposition home or self-care (01) ==
LOC: OR 14:19 → AC 14:20
PROVIDERS: Physician Assistant Surgical; PCP Physician Assistant; Referring Provider Orthopaedic Surgery Adult Reconstructive Orthopaedic Surgery; Visit Provider Orthopaedic Surgery Adult Reconstructive Orthopaedic Surgery
PROC: 0SRC0JZ Replacement of Right Knee Joint with Synthetic Substitute, Open Approach (ICD-10-PCS; CPT 27447; principal; 2025-06-23 11:15)
DX: M17.11 Unilateral primary osteoarthritis, right knee (principal); Z82.69 Family history of other diseases of the musculoskeletal system and connective tissue; M21.061 Valgus deformity, not elsewhere classified, right knee; M25.761 Osteophyte, right knee
CPT/HCPCS: 27447; 36415; 73560; 80048; 82962; 85025; 97161; 97165; 97530; 97535; C1776; C1713; J0689; J1100; J1885; J2405; J2704; J7050; J7120